=== PATIENT | male | born 1980 | race Caucasian/White ===

== ENCOUNTER 2018-03-01 17:00 | Emergency (ER) | payer OTHER ==
[2018-03-01] MEDS: diphenhydrAMINE 50 MG/ML SDV IVPUSH ONE (17:57)
[2018-03-01] MEDS: Take Home: Cephalexin 500 MG Cap, 4 Cap Pack PO SCH (18:37)
--- NOTE | 2018-03-09 05:27 | EDM.PDOC ---
ED HPI GENERAL MEDICAL PROBLEM - General Chief Complaint: Laceration Time Seen by Provider: 03/01/18 17:20 Source of Information: Reports: Patient History Limitations: Reports: No Limitations - History of Present Illness INITIAL COMMENTS - FREE TEXT/NARRATIVE: pt. sustained laceration to dorsum of L hand while working on a furnace. He states that he cut it on the edge of some metal. He is unable to fully extend his L middle finger. Denies any other injury. Onset: Today Left Hand Pain Score (Numeric/FACES): 10 - Related Data Allergies Allergy/AdvReac Type Severity Reaction Status Date / Time iodine Allergy Cannot Verified 03/01/18 18:06 Remember lidocaine Allergy Other Verified 03/01/18 17:36 Penicillins Allergy Cannot Verified 03/01/18 18:06 Remember Home Meds: Home Meds . [No Known Home Meds] 03/01/18 [History] Past Medical History - Past Health History Medical/Surgical History: Denies Medical/Surgical History Social & Family History - Tobacco Use Smoking Status *Q: Current Every Day Smoker Years of Tobacco use: 20 Packs/Tins Daily: 1 - Recreational Drug Use Recreational Drug Use: No ED ROS GENERAL - Review of Systems Review Of Systems: See Below Musculoskeletal: Reports: Hand Pain, Other (2 cm. laceration to dorsum of L hand involving extensor tendon of middle finger) ED EXAM, GENERAL - Physical Exam Exam: See Below General Appearance: Alert, WD/WN, No Apparent Distress Extremities: Normal Capillary Refill, Other (2 cm laceration to dorsum of L hand of MCP involving extensor tendon) ED GENERAL MEDICAL PROCEDURES - Laceration/Wound Repair Left Middle Hand Lac/wound length in cm: 2 Anesthetic Type: Local Local Anesthesia - Lidocaine (Xylocaine): 1% Plain Local Anesthetic Volume: 2cc Skin Prep: Chlorhexidine (Hibiciens) Exploration/Debridement/Repair: Wound Explored Closed with: Sutures Suture Size: 4-0 # of Sutures: 3 Progress/Comments: Spoke with hand surgery who suggested closure of the skin and outpatient followup for tendon repair. Course - Vital Signs Last Recorded V/S: Last Vital Signs Temp 36.8 C 03/01/18 17:10 Pulse 74 03/01/18 17:20 Resp 16 03/01/18 17:10 BP 136/97 H 03/01/18 17:20 Pulse Ox - Orders/Labs/Meds Meds: Medications Discontinued Medications Generic Name Dose Route Start Last Admin Trade Name Juan PRN Reason Stop Dose Admin Cephalexin 1 packet 03/01/18 20:00 03/01/18 18:37 Take Home: Cephalexin 500 Mg, 4 Cap Pack PO 1 packet TID EMELIA Administration Diphenhydramine HCl 50 mg 03/01/18 17:36 03/01/18 17:57 Benadryl IVPUSH 03/01/18 17:37 50 mg ONETIME ONE Administration Departure - Departure Time of Disposition: 18:20 Disposition: Home, Self-Care 01 Clinical Impression: Laceration involving tendon - Discharge Information Instructions: Laceration Care, Adult, Tendon Repair Referrals: Lucinda Ji DO [Primary Care Provider] - Forms: ED Department Discharge Additional Instructions: Dr. Childress or someone from his office will contact you with a plan for surgery. Keep dressing on until seen by them. Do not eat after midnight and tell them that you haven't. Keflex 500mg three times daily for 7 days. Return if redness, swelling, or discharge from the area. My cellphone # is [phone]. Call me if you haven't heard from anyone by noon tomorrow.
== END 2018-03-01 18:45 | disposition home or self-care (01) ==
LOC: VM.ED 17:00
DX: S61.412A Laceration without foreign body of left hand, initial encounter (principal); F17.210 Nicotine dependence, cigarettes, uncomplicated; W26.8XXA Contact with other sharp object(s), not elsewhere classified, initial encounter; Z91.09 Other allergy status, other than to drugs and biological substances; Z88.0 Allergy status to penicillin; Z88.8 Allergy status to other drugs, medicaments and biological substances
CPT/HCPCS: 12001; 99283; A9270; J1200

== ENCOUNTER 2019-06-21 23:37 | Observation (INO) | payer OTHER ==
[2019-06-21] MEDS ORDERED: Naloxone 0.4 MG/ML SDV ONE (23:51)
[2019-06-22] MEDS ORDERED: Ondansetron 4 MG/2 ML SDV IVPUSH ONE ×2 (00:01→01:19)
[2019-06-22] MEDS ORDERED: Sodium Chloride 0.9% 10 ML Syringe FLUSH PRN (00:01)
[2019-06-22] MEDS ORDERED: Sodium Chloride 0.9% 1,000 ML IV ONE (00:01)
[2019-06-22] MEDS ORDERED: Flumazenil 0.1 MG/ML 5 ML MDV IVPUSH ONE (00:17)
[2019-06-22 00:28] LABS: BARBITURATE SCREEN,URINE NEGATIVE (NEGATIVE); BENZODIAZEPINES SCREEN,URINE NEGATIVE (NEGATIVE); EDDP,URINE SCREEN NEGATIVE (NEGATIVE); METHAMPHETAMINE SCREEN, URINE NEGATIVE (NEGATIVE); TCA SCREEN,URINE NEGATIVE (NEGATIVE); THC SCREEN,URINE 50 NG/ML NEGATIVE (NEGATIVE)
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
[2019-06-22 00:41] LABS: CHLORIDE,CL 108 mmol/L (98-107); SODIUM,NA 142 mmol/L (136-145)
[2019-06-22] MEDS ORDERED: Lactated Ringers 1,000 ML IV ONE (00:46)
[2019-06-22 00:47] LABS: ANION GAP 13.2 mmol/L (10-20)
[2019-06-22] MEDS: D5 1/2 NS w/ 40 mEq/L KCl 1,000 ML IV SCH ×2 (00:56→05:38)
[2019-06-22] MEDS ORDERED: Magnesium Sulfate/Water 2 GM in Premix Bag 1 BAG IV ONE (01:18)
[2019-06-22] MEDS ORDERED: Calcium Carbonate 750 MG Tab.Chew PO ONE (01:18)
[2019-06-22] MEDS ORDERED: Ondansetron 4 MG/2 ML SDV IV PRN (01:19)
[2019-06-22] MEDS ORDERED: LORazepam 2 MG/ML SDV IVPUSH STA (05:53)
[2019-06-22 07:28] LABS: ANION GAP 12.4 mmol/L (10-20); CHLORIDE,CL 105 mmol/L (98-107); SODIUM,NA 140 mmol/L (136-145)
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
== END 2019-06-22 09:00 | disposition home or self-care (01) ==
LOC: VM.ED 23:37 → VM.MS 06-22 01:10
PROVIDERS: ADMIT Nurse Practitioner Family; ATTEND Nurse Practitioner Family
DX: F10.129 Alcohol abuse with intoxication, unspecified (principal); Z88.4 Allergy status to anesthetic agent; Z88.0 Allergy status to penicillin; Z91.048 Other nonmedicinal substance allergy status
CPT/HCPCS: 36415; 51702; 80048; 80053; 80305; 80307; 81001; 83735; 85025; 86140; 94760; 96361; 96365; 96375; 99285; G0480; J2060; J2310; J2405; J3475; J3480; J3490; J7030; 96366; 96368; G0378

== ENCOUNTER 2020-05-17 05:11 | Emergency (ER) | payer OTHER ==
[2020-05-17] MEDS ORDERED: methylPREDNISolone Sodium Succinate 125 MG/2 ML SDV IVPUSH ONE (05:45)
[2020-05-17] MEDS ORDERED: Ketorolac 30 MG/ML SDV IVPUSH ONE (05:45)
[2020-05-17] MEDS ORDERED: fentaNYL 100 MCG/2 ML SDV IVPUSH ONE (05:45)
[2020-05-17] MEDS ORDERED: Sodium Chloride 0.9% 10 ML Syringe FLUSH PRN (05:46)
[2020-05-17] MEDS ORDERED: Diazepam 5 MG Tab PO ONE (05:46)
--- NOTE | 2020-05-17 05:53 | EDM.PDOC ---
ED HPI GENERAL MEDICAL PROBLEM - General Chief Complaint: Back Pain or Injury Stated Complaint: Back Pain Time Seen by Provider: 05/17/20 05:31 Source of Information: Reports: Patient, EMS - History of Present Illness INITIAL COMMENTS - FREE TEXT/NARRATIVE: Pelon is a 39 y/o male who is brought to the ER by EMS for acute low back pain. The patient reports that his pain got very bad yesterday to the point that he could not move. He reports that he has sharp pain down both of his legs tat is worse with movement. He could not get up for EMS and they had to bring him in a scoop stretcher. He has only taken acetaminophen and cannot remember the last time he took it. Per patient report he is working with a chiropractor who has referred him to Dr Tao a pain specialist for a virtual consult on Tuesday. He is seen locally by Ashlee Yarbrough CNP but has not been seen there recently. He denies nay new injury, reports that he had a back surgery in [place] 5 years ago on his L4-5 region. - Related Data Allergies Allergy/AdvReac Type Severity Reaction Status Date / Time iodine Allergy Cannot Verified 05/17/20 05:36 Remember lidocaine Allergy Other Verified 05/17/20 05:36 Penicillins Allergy Cannot Verified 05/17/20 05:36 Remember Home Meds: Home Meds Cyclobenzaprine [Flexeril] 10 mg PO TID PRN #30 tab 05/17/20 [Rx] Hydrocodone/Acetaminophen [Hydrocodon-Acetaminophen 5-325] 1 - 2 each PO Q6H 3 Days #20 tablet 05/17/20 [Rx] Ibuprofen 800 mg PO Q8H #90 tablet 05/17/20 [Rx] methylPREDNISolone [Medrol] 4 mg PO ASDIRECTED #21 dospk 05/17/20 [Rx] Past Medical History - Past Health History Medical/Surgical History: Denies Medical/Surgical History - Infectious Disease History Infectious Disease History: Reports: Other (See Below) Other Infectious Disease History: unknown Social & Family History - Family History Family Medical History: Unobtainable - Caffeine Use Caffeine Use: Reports: Coffee, Soda Review of Systems - Review of Systems Review Of Systems: See Below Constitutional: Reports: No Symptoms Eyes: Reports: No Symptoms Ears: Reports: No Symptoms Nose: Reports: No Symptoms Mouth/Throat: Reports: No Symptoms Respiratory: Reports: No Symptoms Cardiovascular: Reports: No Symptoms GI/Abdominal: Reports: No Symptoms Genitourinary: Reports: No Symptoms Musculoskeletal: Reports: Back Pain Skin: Reports: No Symptoms Neurological: Reports: No Symptoms Psychiatric: Reports: No Symptoms ED EXAM, GENERAL - Physical Exam Exam: See Below General Appearance: Alert, WD/WN, No Apparent Distress (Adult Male, lying quietly on ER cart on phone) Ears: Hearing Grossly Normal Nose: Normal Inspection Throat/Mouth: Normal Voice, No Airway Compromise Head: Atraumatic, Normocephalic Neck: Normal Inspection, Supple Respiratory/Chest: No Respiratory Distress, Lungs Clear, Chest Non-Tender Cardiovascular: Normal Peripheral Pulses, Regular Rate, Rhythm, No Edema, No Murmur GI/Abdominal: Normal Bowel Sounds, Soft, Non-Tender (Male) Exam: Deferred Rectal (Males) Exam: Deferred Back Exam: Vertebral Tenderness (Lower lumbar region), Other (Pain with left leg raising at 30 degrees and pain with right leg raising at 45 degrees ) Extremities: Normal Inspection, Non-Tender Neurological: Alert, Oriented, CN II-XII Intact, Normal Reflexes Psychiatric: Normal Affect Skin Exam: Warm, Dry, Intact, Normal Color Lymphatic: No Adenopathy Course - Vital Signs Text/Narrative:: The patient was seen by the [facility]. No records were available for review. [facility] report reviewed, note last narcotic rx Nov 2019. Current MME/day=0.00. Rates pain 10/10. Patient was given Fentanyl 100mcg IVP, Toradol 30mg IVP, Valium 10mg po, and SoluMedrol 125mg IVP. 0645 Rates pain now 5/10, he can sit on the edge of the bed now. Reports he does not think he can walk. [facility] advised pain adn inflammation may take a bit longer to improve. Patient anxious to go home and asking when he will be discharged. He was given discharge instructions and left the ER in stable condition. - Orders/Labs/Meds Orders: Active Orders 24 hr Category Date Time Status Sodium Chloride 0.9% [Saline Flush] Med 05/17/20 05:46 Ordered 10 ml FLUSH ASDIRECTED PRN diazePAM [Valium] Med 05/17/20 05:46 Once 10 mg PO ONETIME ONE Saline Lock Insert [OM.PC] Stat Oth 05/17/20 05:46 Ordered Medication Orders Diazepam (Valium.) 10 mg PO ONETIME ONE Stop: 05/17/20 05:47 Meds: Medications Generic Name Dose Route Start Last Admin Trade Name Freq PRN Reason Stop Dose Admin Diazepam 10 mg 05/17/20 05:46 Valium. PO 05/17/20 05:47 ONETIME ONE Discontinued Medications Generic Name Dose Route Start Last Admin Trade Name Freq PRN Reason Stop Dose Admin Fentanyl 100 mcg 05/17/20 05:45 Sublimaze IVPUSH 05/17/20 05:46 ONETIME ONE Ketorolac Tromethamine 30 mg 05/17/20 05:45 Toradol IVPUSH 05/17/20 05:46 ONETIME ONE Methylprednisolone Sodium Succinate 125 mg 05/17/20 05:45 Solu-Medrol IVPUSH 05/17/20 05:46 ONETIME ONE Departure - Departure Time of Disposition: 06:46 Disposition: Home, Self-Care 01 Condition: Good Clinical Impression: Acute low back pain with sciatica Qualifiers: Back pain laterality: unspecified Sciatica laterality: sciatica of left side Qualified Code(s): M54.42 - Lumbago with sciatica, left side - Discharge Information *PRESCRIPTION DRUG MONITORING PROGRAM REVIEWED*: Yes *COPY OF PRESCRIPTION DRUG MONITORING REPORT IN PATIENT BRANT: Yes Prescriptions: Cyclobenzaprine [Flexeril] 10 mg PO TID PRN #30 tab PRN Reason: Muscle Spasm Hydrocodone/Acetaminophen [Hydrocodon-Acetaminophen 5-325] 1 - 2 each PO Q6H 3 Days #20 tablet Ibuprofen 800 mg PO Q8H #90 tablet methylPREDNISolone [Medrol] 4 mg PO ASDIRECTED #21 dospk Instructions: Radicular Pain, Pain Medicine Instructions, [id number] Referrals: Lucinda Ji DO [Primary Care Provider] - Additional Instructions: -Ibuprofen 800mg oral every 8 hours for pain/inflammation #90(Rx) -Hydrocodone/APAP 5/325mg 1-2 tablets oral every 6 hours as needed #20(Rx) -Cyclobenzaprine 10mg oral every 8 hours as needed for muscle spasms #30(Rx) -Medrol DosePack 4mg oral as directed for inflammation #21(Rx) -Apply ice to the lower back region -Rest and increase your activity as able -You need to make an appt with your PCP for further pain med refills and further management of this back pain. -You may need an MRI that your PCP will need to refer you to have done. -Keep your pain management virtual appt that you have set up for Tuesday with Dr Tao -Return as needed to the ER for any concerns - My Orders Last 24 Hours: My Active Orders 05/17/20 05:46 Sodium Chloride 0.9% [Saline Flush] 10 ml FLUSH ASDIRECTED PRN diazePAM [Valium] 10 mg PO ONETIME ONE Saline Lock Insert [OM.PC] Stat - Assessment/Plan Last 24 Hours: My Active Orders 05/17/20 05:46 Sodium Chloride 0.9% [Saline Flush] 10 ml FLUSH ASDIRECTED PRN diazePAM [Valium] 10 mg PO ONETIME ONE Saline Lock Insert [OM.PC] Stat
== END 2020-05-17 06:58 | disposition home or self-care (01) ==
LOC: VM.ED 05:11
DX: M54.42 Lumbago with sciatica, left side (principal); Z91.048 Other nonmedicinal substance allergy status; Z88.0 Allergy status to penicillin; Z88.4 Allergy status to anesthetic agent
CPT/HCPCS: 96374; 96375; 99284; A9270; J1885; J2930; J3010; 99283-GF